=== PATIENT | male | born 1940 | race Caucasian/White ===

== ENCOUNTER → 2022-10-28 | Outpatient (CLI) | payer MEDICARE | LOC: M RAD 12:09 | PROVIDERS: ATTEND Surgery | DX: K40.20 Bilateral inguinal hernia, without obstruction or gangrene, not specified as recurrent (principal) ==

== ENCOUNTER 2022-12-09 09:34 | Day surgery (SDC) | payer MEDICARE ==
[~2022-12-09] VITALS: Ht 172.7 cm; Wt 80.2 kg
[~2022-12-09 09:34] MED LIST: ALBU8.5H; ASPI-226 PO; ATOR1TAB21 PO; BIMA01SOL; BRIM1OPD; FAMO20TA5 PO; FURO20TA2 PO; IPRA0.00; LOSA25TA13 PO; METO1TAB32 PO; TAMS1CAP17 PO; TRAM50TA2 PO; TREL1AER; ceFAZolin SOD 2 GM in IV 1 EA IV ONE
[2022-12-09] MEDS ORDERED: MIDAZOLAM INJ 2MG/2ML VIAL As Ordered ONE (09:57)
[2022-12-09] MEDS ORDERED: LIDOCAINE 2% 100MG/5ML SDV (FOR ANES.) As Ordered ONE (09:57)
[2022-12-09] MEDS ORDERED: fentaNYL 100 MCG/2 ML INJECTION As Ordered ONE (09:57)
[2022-12-09] MEDS ORDERED: ROCURONIUM BROMIDE 50MG/5ML VIAL As Ordered ONE ×2 (09:57→12:15)
[2022-12-09] MEDS ORDERED: propofoL 200 MG/20 ML VIAL As Ordered ONE (09:57)
[2022-12-09] MEDS ORDERED: ONDANSETRON 4MG 2ML VIAL As Ordered ONE (09:58)
[2022-12-09] MEDS ORDERED: LR 1,000 ML IV SCH ×2 (10:00→13:00)
[2022-12-09] MEDS ORDERED: ETOMIDATE INJ 20MG/10ML VIAL As Ordered ONE (11:09)
[2022-12-09] MEDS ORDERED: ESMOLOL INJ 100MG/10ML VIAL As Ordered ONE (11:32)
[2022-12-09] MEDS ORDERED: hydrALAZINE 20MG/ML 1ML VIAL As Ordered ONE (11:32)
[2022-12-09] MEDS ORDERED: SUGAMMADEX SODIUM 500 MG/5 ML VIAL (BRIDION) As Ordered ONE (12:28)
[2022-12-09] MEDS ORDERED: ACETAMINOPHEN 1000MG 100ML IV BAG As Ordered ONE (12:32)
[2022-12-09] MEDS ORDERED: fentaNYL 100 MCG/2 ML INJECTION IV PRN (13:00)
[2022-12-09] MEDS ORDERED: ONDANSETRON 4MG 2ML VIAL IV PRN (13:00)
[2022-12-09] MEDS ORDERED: NORCO, ANEXSIA 5/325MG TABLET (HYDROcodone/ACETAMINOPHEN) PO PRN (13:00)
[2022-12-09] MEDS: oxyCODONE 5MG TAB PO PRN ×2 (13:17→13:56)
[2022-12-09] MEDS: HYDROMORPHONE HCL 0.5 MG/ 0.5 ML SYRINGE IV PRN ×4 (13:17→13:50)
[2022-12-09] MEDS ORDERED: METOCLOPRAMIDE INJ 10MG/2ML VIAL IV PRN (13:40)
[2022-12-09] MEDS ORDERED: ALBUTEROL SULFATE 2.5MG/0.5ML INH NEB SOLN INH ONE (13:45)
[2022-12-09 14:52] VITALS: BP 148/70; TEMP 97.7; O2SAT 96
[2022-12-11] MEDS ORDERED: hydrocodone (11:01)
[2022-12-11] MEDS ORDERED: IBUP200C25 PO (11:01)
[2022-12-11] MEDS ORDERED: OXYGEN (11:02)
== END 2022-12-09 15:00 | disposition home or self-care (01) ==
LOC: M SDC 09:34
PROVIDERS: ATTEND Surgery
DX: K40.91 Unilateral inguinal hernia, without obstruction or gangrene, recurrent (principal); I25.2 Old myocardial infarction; Z95.5 Presence of coronary angioplasty implant and graft; G47.9 Sleep disorder, unspecified; Z87.891 Personal history of nicotine dependence
CPT/HCPCS: 49651; C1781; J0131; J0360; J0665; J0690; J1100; J1170; J1805; J2250; J2405; J2765; J3010; S2900